=== PATIENT | male | born 1955 | race Caucasian/White ===

== ENCOUNTER 2016-09-04 20:05 | Inpatient (IN) | payer OTHER ==
--- NOTE | 2016-09-04 21:18 | HP ---
CIWA Score - CIWA Score Nausea/Vomitin-No Nausea/No Vomiting Muscle Tremors: 3 Anxiety: 3 Agitation: 2 Paroxysmal Sweats: 2 Orientation: 3-Disoriented Date>2 days Tacttile Disturbances: 2-Mild Itch/Numbness/Burn Auditory Disturbances: 1-Very Mild Visual Disturbances: 1-Very Mild Sensitivity Headache: 1-Very Mild CIWA-Ar Total Score: 18 Admission ROS BHS - HPI Chief Complaint: WITHDRAWAL SYMPTOMS Allergies/Adverse Reactions: Allergies Allergy/AdvReac Type Severity Reaction Status Date / Time No Known Allergies Allergy Verified 09/27/14 12:52 History of Present Illness: 61 Y.O. MAN WITH AN EXTENSIVE HISTORY OF ALCOHOL DEPENDENCE IS HERE SEEKING DETOX. HE REPORTS HE DOES NOT HAVE A SIGNIFICANT PERIOD OF SOBRIETY. HE WAS LAST HERE FOR DETOX IN 09/2014. Exam Limitations: Intoxication - Ebola screening Have you traveled outside of the country in the last 21 days: No - Review of Systems Constitutional: Diaphoresis, Loss of Appetite, Changes in sleep, Unintentional Wgt. Loss EENT: reports: No Symptoms Reported Respiratory: reports: Shortness of Breath Cardiac: reports: Lightheadedness GI: reports: No Symptoms Reported : reports: No Symptoms Reported Musculoskeletal: reports: Neck Pain Integumentary: reports: Change in Color, Change in Hair/Nails, Dryness Neuro: reports: Headache, Tremors Endocrine: reports: No Symptoms Reported Hematology: reports: No Symptoms Reported Psychiatric: reports: Mood/Affect Appropiate Other Systems: Reviewed and Negative Patient History - Patient Medical History Hx Anemia: No Hx Asthma: No Hx Chronic Obstructive Pulmonary Disease (COPD): No Hx Cancer: No Hx Cardiac Disorders: No Hx Congestive Heart Failure: No Hx Hypertension: No Hx Hypercholesterolemia: No Hx Pacemaker: No HX Cerebrovascular Accident: No Hx Seizures: No Hx Dementia: No Hx Diabetes: No Hx Gastrointestinal Disorders: Yes (DYSPEPSIA ) Hx Liver Disease: No Hx Genitourinary Disorders: No Hx Sexually Transmitted Disorders: No Hx Renal Disease (ESRD): No Hx Thyroid Disease: No Hx Human Immunodeficiency Virus (HIV): No (NEGATIVE HX) Hx Hepatitis C: No Hx Depression: Yes Hx Suicide Attempt: No (denies) Hx Bipolar Disorder: No Hx Schizophrenia: No - Patient Surgical History Past Surgical History: Yes Hx Neurologic Surgery: No Hx Cataract Extraction: No Hx Cardiac Surgery: No Hx Lung Surgery: No Hx Breast Surgery: No Hx Breast Biopsy: No Hx Abdominal Surgery: No Hx Appendectomy: Yes (at age of 47--[facility]) Hx Cholecystectomy: No Hx Genitourinary Surgery: No Hx Section: No Hx Orthopedic Surgery: No Anesthesia Reaction: No - PPD History Previous Implant?: Yes Documented Results: Negative w/o proof Date: 04/16/14 Results: 0 mm PPD to be Administered?: Yes - Reproductive History Patient is a Female of Child Bearing Age (11 -55 yrs old): No - Smoking Cessation Smoking history: Current every day smoker Have you smoked in the past 12 months: Yes Aproximately how many cigarettes per day: 4 Cigars Per Day: 0 Hx Chewing Tobacco Use: No Initiated information on smoking cessation: Yes 'Breaking Loose' booklet given: 09/04/16 - Substance & Tx. History Hx Alcohol Use: Yes Hx Substance Use: No Hx Substance Use Treatment: Yes (DETOX ) - Substances Abused Alcohol Route: Oral Frequency: Daily Amount used: 1 PINT OF LIQUOR + 1 6PACK OF BEER Age of first use: 17 Date of Last Use: 09/03/16 Family Disease History - Family Disease History Family Disease History: Heart Disease: Mother ( ), Other: Father (ETOH DEPENDENCE- ) Admission Physical Exam BHS - Vital Signs Vital Signs: Last Vital Signs Temp Pulse Resp BP Pulse Ox 98.6 F 108 H 17 125/73 09/04/16 21:42 09/04/16 21:42 09/04/16 21:42 09/04/16 21:42 - Physical General Appearance: Yes: Disheveled, Intoxicated, Tremorous, Sweating, Anxious HEENTM: Yes: Hearing grossly Normal, Normocephalic, Normal Voice Respiratory: Yes: Chest Non-Tender, Lungs Clear, Normal Breath Sounds, No Respiratory Distress, No Accessory Muscle Use Neck: Yes: Trachea in good position Breast: Yes: Breast Exam Deferred Cardiology: Yes: Regular Rhythm, Tachycardia Abdominal: Yes: Flat, Soft Genitourinary: Yes: Within Normal Limits Back: Yes: Normal Inspection Musculoskeletal: Yes: Back pain Extremities: Yes: Tremors Neurological: Yes: Alert, Normal Response Integumentary: Yes: Dry, Rash Lymphatic: Yes: Within Normal Limits - Diagnostic (1) Contact dermatitis Current Visit: Yes Status: Chronic (2) Nicotine dependence Current Visit: Yes Status: Chronic (3) Alcohol dependence with uncomplicated withdrawal Current Visit: Yes Status: Chronic Cleared for Admission [facility] - Detox or Rehab [facility] Level of Care: Medically Managed Detox Regimen/Protocol: Librium (0) S Breath Alcohol Content Breath Alcohol Content: 0.327 Vital Signs - Vital Signs Vital Signs Refused: Yes Temperature: 98.6 F Temperature Source: Oral Pulse Rate: 108 Respiratory Rate: 17 Blood Pressure: 125/73 BP Location: Left Arm Blood Pressure Position: Sitting - Height Height: 5 ft 1 in - Weight Weight: 119 lb Weight Measurement Method: Standing Scale Body Mass Index (BMI): 22.4 Urine Drug Screen - Test Device Lot Number: [id number] Expiration Date: 03/23/18 - Control Is Test Valid: Yes - Results Drug Screen Negative: Yes
[2016-09-04] MEDS ORDERED: P-EPHED 60MG/TRIPROLIDI 2.5MG TABLET PO PRN (21:38)
[2016-09-04] MEDS ORDERED: chlordiazePOXIDE HCL 25 MG CAPSULE PO PRN (21:38)
[2016-09-04] MEDS ORDERED: LOPERAMIDE HCL 2 MG CAPSULE PO PRN (21:38)
[2016-09-04] MEDS ORDERED: MAG HYDROX/AL HYDROX/SIMETH 30 ML UNIT-DOSE CUP PO PRN (21:38)
[2016-09-04] MEDS ORDERED: hydrOXYzine PAMOATE 50 MG CAPSULE (FP) PO PRN (21:38)
[2016-09-04] MEDS ORDERED: MAGNESIUM CITRATE 300 ML BOTTLE PO PRN (21:38)
[2016-09-04] MEDS ORDERED: IBUPROFEN 400 MG TABLET (FP) PO PRN (21:38)
[2016-09-04] MEDS ORDERED: chlordiazePOXIDE HCL 25 MG CAPSULE PO ONE (21:38)
[2016-09-04] MEDS ORDERED: guaiFENesin/D-METHORPHAN HB 10 ML UNIT-DOSE CUPS PO PRN (21:38)
[2016-09-04] MEDS ORDERED: ACETAMINOPHEN 325 MG TABLET (FP) PO PRN (21:38)
[2016-09-04] MEDS ORDERED: MAGNESIUM HYDROX 2400MG/30ML ORAL SUSPENSION 30 ML CUP PO PRN (21:38)
[2016-09-04] MEDS ORDERED: MENTHOL/PHENOL 1 EACH UD MM PRN (21:38)
[2016-09-04] MEDS ORDERED: NICOTINE POLACRILEX 2 MG GUM BC PRN (21:38)
[2016-09-04 21:42] VITALS: BMI 22.4
[2016-09-04] MEDS: chlordiazePOXIDE HCL 25 MG CAPSULE PO SCH (23:04)
[2016-09-04] MEDS: THIAMINE HCL 100 MG TABLET (FP) PO SCH (23:04)
[2016-09-04] MEDS: diphenhydrAMINE HCL 50 MG CAPSULE PO PRN (23:12)
[2016-09-04] MEDS: HYDROCORTISONE 1% TOPICAL LOTION 118 ML BOTTLE TP SCH (23:57)
[2016-09-05] MEDS: chlordiazePOXIDE HCL 25 MG CAPSULE PO SCH ×4 (05:34→22:40)
[2016-09-05 10:03] LABS: MCH 33.7 pg (25.7-33.7); MCHC 33.2 g/dl (32.0-35.9); MEAN CELL VOLUME 101.5 fl (80-96); MEAN PLT VOLUME 8.8 fl (7.5-11.1); PLATELET COUNT 142 K/MM3 (134-434); RDW 13.6 % (11.9-15.9); WHITE BLOOD COUNT 2.2 K/mm3 (4.0-10.0)
[2016-09-05 10:15] LABS: ALK PHOS 93 U/L (45-117); ANION GAP 10 (8-16); CALCIUM 8.5 mg/dL (8.5-10.1); CO2 32 mmol/L (21-32); COCKROFT - GAULT 119.94; CREATININE 0.5 mg/dL (0.7-1.3); GLUCOSE,RANDOM 83 mg/dL (74-106); SGOT/AST 182 U/L (15-37); SGPT/ALT 106 U/L (12-78); TOT PROT 7.1 g/dl (6.4-8.2)
[2016-09-05] MEDS: NICOTINE 14 MG/24 HOURS TOPICAL PATCH TD SCH (10:54)
[2016-09-05] MEDS: PRENATAL VITAMINS W/ FOLIC ACID TABLET (FP) PO SCH (10:54)
[2016-09-05] MEDS: HYDROCORTISONE 1% TOPICAL LOTION 118 ML BOTTLE TP SCH ×2 (10:55→22:39)
[2016-09-05] MEDS ORDERED: PNEUMOCOCCAL 23 VACCINE 0.5 ML VIAL IM ONE (12:00)
[2016-09-05] MEDS ORDERED: PNEUMOC 13-VAL CONJ-DIP CRM/PF 0.5 ML DISP.SYRIN IM ONE (12:00)
--- NOTE | 2016-09-05 12:36 | PN ---
S CIWA - CIWA Score Nausea/Vomitin Muscle Tremors: 5 Anxiety: 4-Mod. Anxious/Guarded Agitation: 4-Moderately Restless Paroxysmal Sweats: 3 Orientation: 0-Oriented Tacttile Disturbances: 1-Very Mild Itch/Numbness Auditory Disturbances: 0-None Visual Disturbances: 0-None Headache: 0-None Present CIWA-Ar Total Score: 19 BHS Progress Note (SOAP) Subjective: Anxiety,tremors,sweating,interrupted sleep,restless,tingling Objective: 09/05/16 12:35 Vital Signs - 8 hr 09/05/16 09/05/16 06:20 09:18 Temperature 97.2 F L 96.2 F L Pulse Rate 89 94 H Respiratory 18 20 Rate Blood Pressure 120/81 130/79 Laboratory Tests 09/05/16 09/05/16 08:00 08:00 WBC 2.2 L D RBC 3.85 L Hgb 13.0 Hct 39.1 MCV 101.5 H MCHC 33.2 RDW 13.6 Plt Count 142 D MPV 8.8 Sodium 140 Potassium 3.4 L Chloride 98 Carbon Dioxide 32 Anion Gap 10 BUN 9 D Creatinine 0.5 L Creat Clearance w eGFR > 60 Random Glucose 83 Calcium 8.5 Total Bilirubin 1.0 D AST 182 H D ALT 106 H D Alkaline Phosphatase 93 Total Protein 7.1 Albumin 4.0 labs noted,k-dur ordered Assessment: 09/05/16 12:35 Withdrawal sx. Hypokalemia Plan: Continue detox k-dur
--- NOTE | 2016-09-05 13:02 | EKG ---
Test Reason : Blood Pressure : / mmHG Vent. Rate : 098 BPM Atrial Rate : 098 BPM P-R Int : 124 ms QRS Dur : 088 ms QT Int : 350 ms P-R-T Axes : 078 070 078 degrees QTc Int : 446 ms NORMAL SINUS RHYTHM NORMAL ECG NO PREVIOUS ECGS AVAILABLE Confirmed by JOELLE GALLAGHER MD ([id number]) on 09/05/2016 1:01:41 PM Referred By: Confirmed By:JOELLE GALLAGHER MD
[2016-09-05 13:26] LABS: HIV 1 & 2 AB NEGATIVE; HIV 1 AGp24 NEGATIVE
[2016-09-05] MEDS ORDERED: chlordiazePOXIDE HCL 25 MG CAPSULE PO ONE (14:00)
[2016-09-05] MEDS: POTASSIUM CHLORIDE TABS 20 MEQ TABLET.ER (FP) PO SCH ×2 (14:09→22:40)
[2016-09-05 14:54] LABS: URINE APPEARANCE CLEAR; URINE BILIRUBIN NEGATIVE (NEGATIVE); URINE BLOOD NEGATIVE (NEGATIVE); URINE COLOR YELLOW; URINE GLUCOSE (UA) NEGATIVE (NEGATIVE); URINE KETONE NEGATIVE (NEGATIVE); URINE LEUK ESTERASE NEGATIVE (NEGATIVE); URINE NITRITE NEGATIVE (NEGATIVE); URINE PROTEIN NEGATIVE (NEGATIVE); URINE UROBILINOGEN 4.0 E.U/dl E.U./dl (0.2-1.0)
--- NOTE | 2016-09-05 15:58 | CONSULT ---
[facility] Psychiatric Consult - Data Date of interview: 09/05/16 Admission source: [facility] Identifying data: Readmission to [facility] for this 61 y/o male seeking detox treatment on for alcohol dependence.Patient is single without children,homeless,unemployed and supported on Public Assistance. Substance Abuse History: - Smoking Cessation. Smoking history: Current every day smoker. Have you smoked in the past 12 months: Yes. Aproximately how many cigarettes per day: 4. Cigars Per Day: 0. Hx Chewing Tobacco Use: No. Initiated information on smoking cessation: Yes. 'Breaking Loose' booklet given : 09/04/16. - Substance & Tx. History. Hx Alcohol Use: Yes. Hx Substance Use : No. Hx Substance Use Treatment: Yes (DETOX ). - Substances Abused. Alcohol. Route: Oral. Frequency: Daily. Amount used: 1 PINT OF LIQUOR + 1 6PACK OF BEER. Age of first use: 17. Date of Last Use: 09/03/16. Confirmed by patient. Medical History: Multiple co-morbidities : psoriasis,lower back pain,arthritis, contact dermatitis and a history of appendectomy (at age 47). Psychiatric History: Patient denies. Physical/Sexual Abuse/Trauma History: Patient denies. Additional Comment: Drug Screen is negative.Noted. Mental Status Exam - Mental Status Exam Alert and Oriented to: Time, Place, Person Cognitive Function: Good Patient Appearance: Unkempt, Disheveled (unshaven) Mood: Withdrawn, Hopeful Affect: Appropriate, Normal Range Patient Behavior: Fatigued, Appropriate, Cooperative Speech Pattern: Clear Voice Loudness: Normal Thought Process: Goal Oriented Thought Disorder: Not Present Hallucinations: Denies Suicidal Ideation: Denies Homicidal Ideation: Denies Insight/Judgement: Poor Sleep: Well Appetite: Good Muscle strength/Tone: Normal Gait/Station: Normal Psychiatric Findings - Problem List ([place] 1, 2,3) (1) Alcohol dependence with uncomplicated withdrawal Current Visit: Yes Status: Acute (2) Nicotine dependence Current Visit: Yes Status: Acute (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
[2016-09-05] MEDS: THIAMINE HCL 100 MG TABLET (FP) PO SCH (22:39)
[2016-09-05] MEDS: diphenhydrAMINE HCL 50 MG CAPSULE PO PRN (22:40)
[2016-09-06] MEDS: chlordiazePOXIDE HCL 25 MG CAPSULE PO SCH ×3 (05:29→16:42)
--- NOTE | 2016-09-06 09:00 | PN ---
S CIWA - CIWA Score Nausea/Vomitin-No Nausea/No Vomiting Muscle Tremors: 4-Moderate,w/Arms Extend Anxiety: 4-Mod. Anxious/Guarded Agitation: 4-Moderately Restless Paroxysmal Sweats: 3 Orientation: 0-Oriented Tacttile Disturbances: 0-None Auditory Disturbances: 0-None Visual Disturbances: 0-None Headache: 0-None Present CIWA-Ar Total Score: 15 BHS Progress Note (SOAP) Subjective: Anxiety,tremors,sweating,interrupted sleep,restless Objective: 09/06/16 08:58 Vital Signs - 8 hr 09/06/16 09/06/16 03:40 06:30 Temperature 96.2 F L Pulse Rate 90 Respiratory 18 18 Rate Blood Pressure 113/80 Laboratory Results - last 24 hr 09/05/16 09/05/16 09/05/16 08:00 08:00 08:00 WBC 2.2 L D RBC 3.85 L Hgb 13.0 Hct 39.1 MCV 101.5 H MCHC 33.2 RDW 13.6 Plt Count 142 D MPV 8.8 Sodium 140 Potassium 3.4 L Chloride 98 Carbon Dioxide 32 Anion Gap 10 BUN 9 D Creatinine 0.5 L Creat Clearance w eGFR > 60 Random Glucose 83 Calcium 8.5 Total Bilirubin 1.0 D AST 182 H D ALT 106 H D Alkaline Phosphatase 93 Total Protein 7.1 Albumin 4.0 Urine Color Urine Appearance Urine pH Ur Specific [place] Urine Protein Urine Glucose (UA) Urine Ketones Urine Blood Urine Nitrite Urine Bilirubin Urine Urobilinogen Ur Leukocyte Esterase RPR Titer Nonreactive HIV 1&2 Antibody Screen HIV P24 Antigen 09/05/16 09/05/16 08:00 12:30 WBC RBC Hgb Hct MCV MCHC RDW Plt Count MPV Sodium Potassium Chloride Carbon Dioxide Anion Gap BUN Creatinine Creat Clearance w eGFR Random Glucose Calcium Total Bilirubin AST ALT Alkaline Phosphatase Total Protein Albumin Urine Color Yellow Urine Appearance Clear Urine pH 8.0 D Ur Specific [place] 1.015 Urine Protein Negative Urine Glucose (UA) Negative Urine Ketones Negative Urine Blood Negative Urine Nitrite Negative Urine Bilirubin Negative Urine Urobilinogen 4.0 e.u/dl Ur Leukocyte Esterase Negative RPR Titer HIV 1&2 Antibody Screen Negative HIV P24 Antigen Negative labs noted,k-dur ordered Assessment: 09/06/16 08:59 Withdrawal sx. Hypokalemia Plan: Continue detox
[2016-09-06] MEDS: HYDROCORTISONE 1% TOPICAL LOTION 118 ML BOTTLE TP SCH ×2 (10:30→22:31)
[2016-09-06] MEDS: POTASSIUM CHLORIDE TABS 20 MEQ TABLET.ER (FP) PO SCH ×2 (10:55→22:30)
[2016-09-06] MEDS: PRENATAL VITAMINS W/ FOLIC ACID TABLET (FP) PO SCH (10:55)
[2016-09-06] MEDS: NICOTINE 14 MG/24 HOURS TOPICAL PATCH TD SCH (10:56)
[2016-09-06] MEDS: THIAMINE HCL 100 MG TABLET (FP) PO SCH (22:30)
[2016-09-06] MEDS: chlordiazePOXIDE 5 MG CAPSULE PO SCH (22:30)
[2016-09-06] MEDS: diphenhydrAMINE HCL 50 MG CAPSULE PO PRN (22:31)
[2016-09-07] MEDS: chlordiazePOXIDE 5 MG CAPSULE PO SCH ×2 (05:25→10:47)
--- NOTE | 2016-09-07 09:19 | PN ---
S Progress Note (SOAP) Subjective: ALERT,NO COMPLAINT Objective: 09/07/16 09:18 Vital Signs Temperature 96.9 F L 09/07/16 06:32 Pulse Rate 97 H 09/07/16 06:32 Respiratory Rate 18 09/07/16 06:32 Blood Pressure 102/73 09/07/16 06:32 O2 Sat by Pulse Oximetry (%) Assessment: 09/07/16 09:18 PATIENT IS STABLE FOR DISCHARGE Plan: FOLLOW UP WITH AFTER CARE PROGRAM ARRANGEMENT AND PMD FOR MEDICAL PROBLEM
--- NOTE | 2016-09-07 09:32 | DS ---
[facility] Detox Discharge Summary Admission Date: 09/04/16 Discharge Date: 09/07/16 - History Present History: Alcohol Dependence Additional Comments: FOLLOW UP WITH AFTER CARE PROGRAM ARRANGEMENT AND PCP FOR MEDICAL PROBLEM AND FOLLOW UP ON LIVER ENZYMES AND POTASSIUM Pertinent Past History: NICOTINE DEPENDENCE - Physical Exam Results Vital Signs: Vital Signs Temperature 96.9 F L 09/07/16 06:32 Pulse Rate 97 H 09/07/16 06:32 Respiratory Rate 18 09/07/16 06:32 Blood Pressure 102/73 09/07/16 06:32 O2 Sat by Pulse Oximetry (%) Pertinent Admission Physical Exam Findings: WITHDRAWAL SYMPTOM - Treatment Hospital Course: Detox Protocol Followed, Detoxed Safely, Responded well, Discharged Condition Good Patient has Accepted a Rehab Referral to: DECLINED - Medication Discharge Medications: Ambulatory Orders Fluocinonide 0.05% Cream [Lidex 0.05% Cream -] 1 applic TP BID #1 tube 09/07/16 Potassium Chloride [K-Dur -] 20 meq PO BID #7 tab 09/07/16 - Diagnosis (1) Alcohol dependence with uncomplicated withdrawal Current Visit: Yes Status: Acute (2) Nicotine dependence Current Visit: Yes Status: Acute (3) Chronic low back pain Current Visit: Yes Status: Chronic (4) Contact dermatitis Current Visit: Yes Status: Chronic (5) Weight decreased Current Visit: Yes Status: Chronic (6) Syncope Current Visit: No Status: Chronic (7) Hypokalemia Current Visit: Yes Status: Acute - AMA Did Patient Leave Against Medical Advice: No
[2016-09-07] MEDS ORDERED: FLUOCINONIDE 0.05% CREAM (60 GM TUBE) TP SCH (10:00)
[2016-09-07 10:15] VITALS: BP 107/69; PULSE 108; TEMP 95.6
[2016-09-07] MEDS: POTASSIUM CHLORIDE TABS 20 MEQ TABLET.ER (FP) PO SCH (10:46)
[2016-09-07] MEDS: PRENATAL VITAMINS W/ FOLIC ACID TABLET (FP) PO SCH (10:47)
[2016-09-07] MEDS: NICOTINE 14 MG/24 HOURS TOPICAL PATCH TD SCH (10:47)
[2016-09-07] MEDS ORDERED: chlordiazePOXIDE HCL 10 MG CAPSULE PO SCH (23:00)
== END 2016-09-07 09:55 | disposition home or self-care (01) | DRG 775 ==
LOC: YASAS 20:05 → Y3N 22:00
PROVIDERS: ADMIT Internal Medicine Addiction Medicine; ATTEND Internal Medicine Addiction Medicine
PROC: HZ2ZZZZ Detoxification Services for Substance Abuse Treatment (ICD-10-PCS; principal; 2016-09-07)
DX: F10.230 Alcohol dependence with withdrawal, uncomplicated (principal); F17.210 Nicotine dependence, cigarettes, uncomplicated; F10.24 Alcohol dependence with alcohol-induced mood disorder; M54.5 Low back pain; M54.41 Lumbago with sciatica, right side; E86.0 Dehydration; R55 Syncope and collapse; R63.4 Abnormal weight loss; Z68.22 Body mass index [BMI] 22.0-22.9, adult
CPT/HCPCS: 36415; 80053; 81003; 85027; 86593; 87389; 93005; 93010